=== PATIENT | male | born 1955 | race Caucasian/White ===

== ENCOUNTER 2017-09-23 18:44 | Emergency (ER) | payer OTHER ==
[~2017-09-23] VITALS: Ht 180.3 cm; Wt 82.5 kg
[2017-09-23 19:04] VITALS: BP 145/80; PULSE 96; RESP 22; TEMP 98.4; O2SAT 97
--- NOTE | 2017-09-23 23:40 | PD ---
HPI Chief Complaint: Psychiatric Symptoms Time Seen by Provider: 23:23 Travel History International Travel<30 days: No Contact w/Intl Traveler<30days: No Traveled to known affect area: No History of Present Illness HPI The patient is a 62-year-old male who presents to the emergency department for psychiatric evaluation. The patient states he has been homeless for approximately 1 month, recently traveled from [place], [place], to the local area looking for a new start. The patient is currently homeless and feeling depressed. Patient started having thoughts of suicide yesterday. The patient states this plan of action would be to step in front of the motor vehicle in an attempt to end his life. He denies any previous suicide attempts. He does have a history of bipolar affective disorder and depression, has not taken his Zoloft or Wellbutrin in 2 days. He denies any illicit drug use, does have a history of alcohol abuse, last alcohol intake was more than 2 days ago. He denies any hallucinations or delusions. He denies any physical complaints and is immediately requesting food. PFSH Past Medical History Bipolar Disorder: Yes Anxiety: Yes Depression: Yes Cardiovascular Problems: Yes (HTN) High Cholesterol: Yes Chest Pain: Yes Cerebrovascular Accident: Yes (10years ago) Diminished Hearing: No Hypertension: Yes Past Surgical History Narrative Surgical Bilateral arthroscopic knee surgery Social History Alcohol Use: Yes (12 pack of beer daily) Tobacco Use: Yes (1 PPD) Substance Use: Yes (Crack cocaine and marijuana approx 2 years ago) Allergies-Medications (Allergen,Severity, Reaction): Coded Allergies: No Known Drug Allergies (Verified Allergy, Unknown, 09/23/17) Reported Meds & Prescriptions Reported Meds & Active Scripts Active Reported Trazodone (Trazodone HCl) 150 Mg Tablet 150 Mg PO HS Metoprolol Succinate ER 24 HR (Metoprolol Succinate) 25 Mg Tab 25 Mg PO DAILY Atorvastatin (Atorvastatin Calcium) 20 Mg Tab 20 Mg PO HS Buspirone (Buspirone HCl) 10 Mg Tab 10 Mg PO BID Quetiapine (Quetiapine Fumarate) 300 Mg Tab 300 Mg PO HS Review of Systems Except as stated in HPI: all other systems reviewed are Neg HENT: No: Lightheadedness Cardiovascular: No: Chest Pain or Discomfort Respiratory: No: Shortness of Breath Gastrointestinal: No: Nausea, Vomiting, Abdominal Pain Neurologic: No: Weakness, Change in Mentation Psychiatric: Positive: Depression, Suicidal Ideations, Mood Disorder, No: Substance Abuse, Homicidal Ideation Physical Exam Narrative GENERAL: Awake, alert, nontoxic-appearing 62-year-old male who appears his stated age and is in no acute respiratory distress. SKIN: Focused skin assessment warm/dry. HEAD: Well-healed scar right mid forehead. EYES: Pupils equal and round. 3 mm bilateral and reactive. ENT: No nasal bleeding or discharge. Poor dentition. Breath smells of cigarettes. NECK: Trachea midline. No JVD. CARDIOVASCULAR: Regular rate and rhythm. No murmur appreciated. RESPIRATORY: No accessory muscle use. Clear to auscultation. Breath sounds equal bilaterally. GASTROINTESTINAL: Abdomen soft, non-tender, nondistended. Well-healed scar right upper quadrant of the abdomen. MUSCULOSKELETAL: No obvious deformities. No clubbing. No cyanosis. No edema. NEUROLOGICAL: Awake and alert. No obvious cranial nerve deficits. Motor grossly within normal limits. Normal speech. Nonfocal. Oriented 4. PSYCHIATRIC: Appropriate mood and affect; insight and judgment normal. Data Data Last Documented VS Vital Signs Date Time Temp Pulse Resp B/P (MAP) Pulse Ox O2 Delivery O2 Flow Rate FiO2 09/23/17 23:25 96 09/23/17 19:04 98.4 22 145/80 (101) 97 Orders Orders Complete Blood Count With Diff (09/23/17 23:35) Comprehensive Metabolic Panel (09/23/17 23:35) Thyroid Stimulating Hormone (09/23/17 23:35) Psych Screen (09/23/17 23:35) Drug Screen, Random Urine (09/23/17 23:35) Alcohol (Ethanol) (09/23/17 23:35) Labs Laboratory Tests Test 09/23/17 23:30 White Blood Count 12.1 TH/MM3 Red Blood Count 4.03 MIL/MM3 Hemoglobin 13.4 GM/DL Hematocrit 37.8 % Mean Corpuscular Volume 93.7 FL Mean Corpuscular Hemoglobin 33.2 PG Mean Corpuscular Hemoglobin Concent 35.4 % Red Cell Distribution Width 14.3 % Platelet Count 365 TH/MM3 Mean Platelet Volume 7.0 FL Neutrophils (%) (Auto) 60.8 % Lymphocytes (%) (Auto) 27.0 % Monocytes (%) (Auto) 8.9 % Eosinophils (%) (Auto) 2.7 % Basophils (%) (Auto) 0.6 % Neutrophils # (Auto) 7.4 TH/MM3 Lymphocytes # (Auto) 3.3 TH/MM3 Monocytes # (Auto) 1.1 TH/MM3 Eosinophils # (Auto) 0.3 TH/MM3 Basophils # (Auto) 0.1 TH/MM3 CBC Comment DIFF FINAL Differential Comment Blood Urea Nitrogen 18 MG/DL Creatinine 1.27 MG/DL Random Glucose 100 MG/DL Total Protein 7.6 GM/DL Albumin 3.9 GM/DL Calcium Level 9.1 MG/DL Alkaline Phosphatase 85 U/L Aspartate Amino Transf (AST/SGOT) 20 U/L Alanine Aminotransferase (ALT/SGPT) 21 U/L Total Bilirubin 0.6 MG/DL Sodium Level 141 MEQ/L Potassium Level 4.0 MEQ/L Chloride Level 105 MEQ/L Carbon Dioxide Level 27.0 MEQ/L Anion Gap 9 MEQ/L Estimat Glomerular Filtration Rate 57 ML/MIN Thyroid Stimulating Hormone 3rd Gen 3.360 uIU/ML Urine Opiates Screen NEG Urine Barbiturates Screen NEG Urine Amphetamines Screen NEG Urine Benzodiazepines Screen POS Urine Cocaine Screen NEG Urine Cannabinoids Screen NEG Ethyl Alcohol Level LESS THAN 3 MG/DL MDM Medical Decision Making Medical Screen Exam Complete: Yes Emergency Medical Condition: Yes Medical Record Reviewed: Yes Interpretation(s) Laboratory Tests Test 09/23/17 23:30 White Blood Count 12.1 TH/MM3 Red Blood Count 4.03 MIL/MM3 Hemoglobin 13.4 GM/DL Hematocrit 37.8 % Mean Corpuscular Volume 93.7 FL Mean Corpuscular Hemoglobin 33.2 PG Mean Corpuscular Hemoglobin Concent 35.4 % Red Cell Distribution Width 14.3 % Platelet Count 365 TH/MM3 Mean Platelet Volume 7.0 FL Neutrophils (%) (Auto) 60.8 % Lymphocytes (%) (Auto) 27.0 % Monocytes (%) (Auto) 8.9 % Eosinophils (%) (Auto) 2.7 % Basophils (%) (Auto) 0.6 % Neutrophils # (Auto) 7.4 TH/MM3 Lymphocytes # (Auto) 3.3 TH/MM3 Monocytes # (Auto) 1.1 TH/MM3 Eosinophils # (Auto) 0.3 TH/MM3 Basophils # (Auto) 0.1 TH/MM3 CBC Comment DIFF FINAL Differential Comment Blood Urea Nitrogen 18 MG/DL Creatinine 1.27 MG/DL Random Glucose 100 MG/DL Total Protein 7.6 GM/DL Albumin 3.9 GM/DL Calcium Level 9.1 MG/DL Alkaline Phosphatase 85 U/L Aspartate Amino Transf (AST/SGOT) 20 U/L Alanine Aminotransferase (ALT/SGPT) 21 U/L Total Bilirubin 0.6 MG/DL Sodium Level 141 MEQ/L Potassium Level 4.0 MEQ/L Chloride Level 105 MEQ/L Carbon Dioxide Level 27.0 MEQ/L Anion Gap 9 MEQ/L Estimat Glomerular Filtration Rate 57 ML/MIN Thyroid Stimulating Hormone 3rd Gen 3.360 uIU/ML Urine Opiates Screen NEG Urine Barbiturates Screen NEG Urine Amphetamines Screen NEG Urine Benzodiazepines Screen POS Urine Cocaine Screen NEG Urine Cannabinoids Screen NEG Ethyl Alcohol Level LESS THAN 3 MG/DL Differential Diagnosis Differential diagnosis includes depressive disorder NOS, bipolar affective disorder, substance-induced mood disorder, poor social situation, malingering. Narrative Course Labs were drawn and sent. Psychiatric evaluation was ordered. Labs were noted. The patient is medically cleared to be evaluated by psychiatry. Disposition as per psych. Diagnosis Primary Impression: Mood disorder Additional Impression: Suicidal ideation Condition: Stable Juan Luis Field MD Sep 23, 2017 23:40
[2017-09-23] MEDS ORDERED: ATOR20TA15 PO (23:41)
[2017-09-23] MEDS ORDERED: BUSP10TA PO (23:41)
[2017-09-23] MEDS ORDERED: QUET1TAB10 PO (23:41)
[2017-09-23] MEDS ORDERED: METO1TAB42 PO (23:46)
[2017-09-23] MEDS ORDERED: TRAZ1TAB14 PO (23:46)
[2017-09-24 00:05] LABS: AUTOMATED NEUTROPHIL # 7.4 TH/MM3 (1.8-7.7); BASOPHIL # 0.1 TH/MM3 (0-0.2); BASOPHIL % 0.6 % (0.0-2.0); EOSINOPHIL # 0.3 TH/MM3 (0-0.4); EOSINOPHIL % 2.7 % (0.0-4.0); HEMATOCRIT 37.8 % (39.0-51.0); HEMOGLOBIN 13.4 GM/DL (13.0-17.0); LYMPHOCYTE # 3.3 TH/MM3 (1.0-4.8); MEAN CELL VOLUME 93.7 FL (80.0-100.0); MEAN CORPUSCULAR HEMOGLOBIN 33.2 PG (27.0-34.0); MEAN CORPUSCULAR HGB CONC 35.4 % (32.0-36.0); MONO % 8.9 % (0.0-8.0); MONOCYTE # 1.1 TH/MM3 (0-0.9); NEUT % 60.8 % (16.0-70.0); PLATELET COUNT 365 TH/MM3 (150-450); RED BLOOD COUNT 4.03 MIL/MM3 (4.50-5.90); RED CELL DISTRIBUTION WIDTH 14.3 % (11.6-17.2); WHITE BLOOD COUNT 12.1 TH/MM3 (4.0-11.0)
[2017-09-24 00:08] LABS: ALBUMIN 3.9 GM/DL (3.4-5.0); AST (GOT) 20 U/L (15-37); BLOOD UREA NITROGEN 18 MG/DL (7-18); CALCIUM 9.1 MG/DL (8.5-10.1); CHLORIDE 105 MEQ/L (98-107); CREATININE 1.27 MG/DL (0.60-1.30); GLOMERULAR FILTRATION RATE 57 ML/MIN (>89); GLUCOSE,RANDOM 100 MG/DL (74-106); SODIUM (NA) 141 MEQ/L (136-145)
[2017-09-24 00:09] LABS: ALT (GPT) 21 U/L (12-78)
[2017-09-24 00:18] LABS: ALKALINE PHOSPHATASE 85 U/L (45-117); TOTAL BILIRUBIN ADULT 0.6 MG/DL (0.2-1.0); TOTAL PROTEIN 7.6 GM/DL (6.4-8.2)
[2017-09-24 08:00] VITALS: BP 132/75; PULSE 78; RESP 18; O2SAT 97
[2017-09-24 10:00] VITALS: BP 117/55; PULSE 90; RESP 16; TEMP 98.6; O2SAT 99
[2017-09-24 14:50] VITALS: BP 96/51; PULSE 78; RESP 16; TEMP 98.4; O2SAT 96
--- NOTE | 2017-09-24 15:39 | PD ---
History of Present Illness Chief Complaint: Psychiatric Symptoms Time Seen by Provider: 15:00 Travel History International Travel<30 Days: No Contact w/Intl Traveler<30days: No Known affected area: No Legal Status Legal Status: Voluntary History of Present Illness: History of Present Illness HPI The patient is a 62-year-old, , homeless male with reported history of bipolar disorder who presents to the emergency department on a voluntary status for psychiatric evaluation. Patient arrived to [place] from [facility] 2 days ago. He had been on his way from [place] to [place] where he normally resides before stopping at [place]. He states he wants to stay here in [place] for a new start. He states that approximately a month ago "when I got my check" I went to [place] to see a baseball game and I has been on a drunk for the past 30 days. It started to snow and get cold so I came back. I have been off my medicine for 2 days and I do not get my check until the third. I do not have a place to stay until then." Patient also tells me that he has been off his medication for 2 days but that he has a prescriptions. He was vague and failed to inform us that he was at a hospital in [place] and was discharged on the before he came here to [facility]. He also tells me he has insurance and has the funds to get the medication. The patient was monitored in secure environment and he presented no behavioral concerns, no suicidality. His main request was to obtain a nicotine patch as well as to obtain food. Labs are reviewed. Current toxicology is positive for benzos. The patient is alert, oriented, engaging, does not appear to be internally stimulated. No evidence of carmelita or hypomania. There is no suicidal or homicidal ideation, intent or plan. Upon discussion of discharge from the ED as he does not present criteria for admission to inpatient psychiatry he states " what am I going to do out there. I am probably just going to get in trouble so that I get thrown in retirement". Later on the patient does tell the test case developer that he has money and will most likely go and get a motel room. PFSH Past Medical History Bipolar Disorder: Yes Anxiety: Yes Depression: Yes Cardiovascular Problems: Yes (HTN) High Cholesterol: Yes Chest Pain: Yes Cerebrovascular Accident: Yes (10years ago) Diminished Hearing: No Hypertension: Yes Psychiatric History Psychiatric History Hx Psychiatric Treatment: Per pt, he has been treated with many different medications but they don't seem to work. He stated that he has been noncompliant with meds for the past couple of days. Most recently admitted to [facility] in [place]. No history of suicide attempts. History of Inpatient Treatment: Yes Guns or firearms in home: No Social History Divorce for the past 10 years. Has 2 children but has no contact with his family. Reports he has been on disability for the past 10 years. Hx Alcohol Use: Yes (12 pack of beer daily) Hx Tobacco Use: Yes (1 PPD) Hx Substance Use: Yes (Crack cocaine and marijuana approx 2 years ago) Substance Use Type: Alcohol, Nicotine/Cigarettes, Benzos (Valium,Xanax) Hx of Substance Use Treatment: Yes Family Psychiatric History Negative Allergies-Medications (Allergen,Severity, Reaction): Coded Allergies: No Known Drug Allergies (Verified Allergy, Unknown, 09/23/17) Reported Meds & Prescriptions Reported Meds & Active Scripts Active Reported Trazodone (Trazodone HCl) 150 Mg Tablet 150 Mg PO HS Metoprolol Succinate ER 24 HR (Metoprolol Succinate) 25 Mg Tab 25 Mg PO DAILY Atorvastatin (Atorvastatin Calcium) 20 Mg Tab 20 Mg PO HS Buspirone (Buspirone HCl) 10 Mg Tab 10 Mg PO BID Quetiapine (Quetiapine Fumarate) 300 Mg Tab 300 Mg PO HS Review of Systems Except as stated in HPI: all other systems reviewed are Neg Mental Status Examination Appearance: Appropriate Consciousness: Alert Orientation: x4 Motor Activity: Normal gait Speech: Unremarkable Language: Adequate Fund of Knowledge: Adequate Attention and Concentration: Adequate Memory: Unremarkable Mood: Appropriate Affect: Appropriate Thought Process & Associations: Intact, Logical, Goal directed Thought Content: Appropriate Hallucination Type: None Delusion Type: None Suicidal Ideation: No Suicidal Plan: No Suicidal Intention: No Homicidal Ideation: No Homicidal Plan: No Homicidal Intention: No Insight: Fair Judgment: Adequate [facility] Medical Decision Making Medical Record Reviewed: Yes Assessment/Plan The patient is a 62-year-old, , homeless male with reported history of bipolar disorder who presents to the emergency department on a voluntary status for psychiatric evaluation. Patient initially reported that he was feeling depressed as well as having suicidal ideation. Patient was monitor and secure environment and presented no behavioral concerns and no suicidality. His main concern was to obtain food and a nicotine patch. He was vague and evasive regarding his most recent psychiatric treatment or providers. He did admit that a month ago he decided to go to watch a baseball game in [place]. Then began traveling south towards [place]. At this stage she is considering staying in the [facility] and is worried because he does not get his check until Wednesday. The patient at this time does not present any criteria for inpatient psychiatric treatment. He was recently as of September 21 discharge from a hospital in [place]. He has prescriptions available as well as has funds available. The patient at this time will be discharged from the ED. The test case developer has given him the information regarding sore resources in the [facility] if he so chooses to stay in this area. Upon discussion of discharge he does threaten that he might do something to get himself in trouble and get himself arrested. Patient is cognitively intact and understands the consequences of his behavior and t that would be a legal matter and not a psychiatric matter. Orders Orders Complete Blood Count With Diff (09/23/17 23:35) Comprehensive Metabolic Panel (09/23/17 23:35) Thyroid Stimulating Hormone (09/23/17 23:35) Psych Screen (09/23/17 23:35) Drug Screen, Random Urine (09/23/17 23:35) Alcohol (Ethanol) (09/23/17 23:35) Diet Regular Basic (09/24/17 Breakfast) Diet Regular Basic (09/24/17 Lunch) Diet Regular Basic (09/24/17 Dinner) Results Vital Signs Date Time Temp Pulse Resp B/P (MAP) Pulse Ox O2 Delivery O2 Flow Rate FiO2 09/24/17 14:50 98.4 78 16 96/51 (66) 96 Room Air 09/24/17 10:00 98.6 90 16 117/55 (75) 99 Room Air 09/24/17 08:00 78 18 132/75 (94) 97 Room Air 09/23/17 23:25 96 09/23/17 19:04 98.4 96 22 145/80 (101) 97 Laboratory Tests Test 09/23/17 23:30 White Blood Count 12.1 Red Blood Count 4.03 Hemoglobin 13.4 Hematocrit 37.8 Mean Corpuscular Volume 93.7 Mean Corpuscular Hemoglobin 33.2 Mean Corpuscular Hemoglobin Concent 35.4 Red Cell Distribution Width 14.3 Platelet Count 365 Mean Platelet Volume 7.0 Neutrophils (%) (Auto) 60.8 Lymphocytes (%) (Auto) 27.0 Monocytes (%) (Auto) 8.9 Eosinophils (%) (Auto) 2.7 Basophils (%) (Auto) 0.6 Neutrophils # (Auto) 7.4 Lymphocytes # (Auto) 3.3 Monocytes # (Auto) 1.1 Eosinophils # (Auto) 0.3 Basophils # (Auto) 0.1 CBC Comment DIFF FINAL Differential Comment Blood Urea Nitrogen 18 Creatinine 1.27 Random Glucose 100 Total Protein 7.6 Albumin 3.9 Calcium Level 9.1 Alkaline Phosphatase 85 Aspartate Amino Transf (AST/SGOT) 20 Alanine Aminotransferase (ALT/SGPT) 21 Total Bilirubin 0.6 Sodium Level 141 Potassium Level 4.0 Chloride Level 105 Carbon Dioxide Level 27.0 Anion Gap 9 Estimat Glomerular Filtration Rate 57 Thyroid Stimulating Hormone 3rd Gen 3.360 Urine Opiates Screen NEG Urine Barbiturates Screen NEG Urine Amphetamines Screen NEG Urine Benzodiazepines Screen POS Urine Cocaine Screen NEG Urine Cannabinoids Screen NEG Ethyl Alcohol Level LESS THAN 3 Diagnosis Primary Impression: Suicidal ideation Additional Impression: Adjustment disorder Psychiatrically Cleared: Yes Med/ Other Pt Specific Info: No Change to Meds Disposition: 01 DISCHARGE HOME Condition: Stable Problem Qualifiers Additional Impression: Adjustment disorder Qualified Codes: F43.21 - Adjustment disorder with depressed mood Svitlana Reddy [facility] Sep 24, 2017 15:39
--- NOTE | 2017-09-24 15:43 | PD ---
Physical Exam Date Seen by Provider: Sep 24, 2017 Time Seen by Provider: 15:42 Narrative 62-year-old previously medically cleared for psychiatric evaluation voluntarily , was evaluated by psychiatric clinicians, and felt to be psychiatrically stable for discharge at this time. Patient remains medically stable at this time. Follow-up will be based on psychiatric note. Data Data Last Documented VS Vital Signs Date Time Temp Pulse Resp B/P (MAP) Pulse Ox O2 Delivery O2 Flow Rate FiO2 09/24/17 14:50 98.4 78 16 96/51 (66) 96 Room Air Orders Orders Complete Blood Count With Diff (09/23/17 23:35) Comprehensive Metabolic Panel (09/23/17 23:35) Thyroid Stimulating Hormone (09/23/17 23:35) Psych Screen (09/23/17 23:35) Drug Screen, Random Urine (09/23/17 23:35) Alcohol (Ethanol) (09/23/17 23:35) Diet Regular Basic (09/24/17 Breakfast) Diet Regular Basic (09/24/17 Lunch) Diet Regular Basic (09/24/17 Dinner) Labs Laboratory Tests Test 09/23/17 23:30 White Blood Count 12.1 TH/MM3 Red Blood Count 4.03 MIL/MM3 Hemoglobin 13.4 GM/DL Hematocrit 37.8 % Mean Corpuscular Volume 93.7 FL Mean Corpuscular Hemoglobin 33.2 PG Mean Corpuscular Hemoglobin Concent 35.4 % Red Cell Distribution Width 14.3 % Platelet Count 365 TH/MM3 Mean Platelet Volume 7.0 FL Neutrophils (%) (Auto) 60.8 % Lymphocytes (%) (Auto) 27.0 % Monocytes (%) (Auto) 8.9 % Eosinophils (%) (Auto) 2.7 % Basophils (%) (Auto) 0.6 % Neutrophils # (Auto) 7.4 TH/MM3 Lymphocytes # (Auto) 3.3 TH/MM3 Monocytes # (Auto) 1.1 TH/MM3 Eosinophils # (Auto) 0.3 TH/MM3 Basophils # (Auto) 0.1 TH/MM3 CBC Comment DIFF FINAL Differential Comment Blood Urea Nitrogen 18 MG/DL Creatinine 1.27 MG/DL Random Glucose 100 MG/DL Total Protein 7.6 GM/DL Albumin 3.9 GM/DL Calcium Level 9.1 MG/DL Alkaline Phosphatase 85 U/L Aspartate Amino Transf (AST/SGOT) 20 U/L Alanine Aminotransferase (ALT/SGPT) 21 U/L Total Bilirubin 0.6 MG/DL Sodium Level 141 MEQ/L Potassium Level 4.0 MEQ/L Chloride Level 105 MEQ/L Carbon Dioxide Level 27.0 MEQ/L Anion Gap 9 MEQ/L Estimat Glomerular Filtration Rate 57 ML/MIN Thyroid Stimulating Hormone 3rd Gen 3.360 uIU/ML Urine Opiates Screen NEG Urine Barbiturates Screen NEG Urine Amphetamines Screen NEG Urine Benzodiazepines Screen POS Urine Cocaine Screen NEG Urine Cannabinoids Screen NEG Ethyl Alcohol Level LESS THAN 3 MG/DL MDM Medical Record Reviewed: Yes Supervised Visit with ANGELINA: Yes Narrative Course 62-year-old previously medically cleared for psychiatric evaluation voluntarily , was evaluated by psychiatric clinicians, and felt to be psychiatrically stable for discharge at this time. Patient remains medically stable at this time. Follow-up will be based on psychiatric note. Diagnosis Primary Impression: Suicidal ideation Additional Impression: Adjustment disorder Qualified Codes: F43.21 - Adjustment disorder with depressed mood Patient Instructions: General Instructions Disposition: DISCHARGE HOME Condition: Stable Fernando Stanton Sep 24, 2017 15:43
== END 2017-09-24 16:06 | disposition home or self-care (01) ==
LOC: NEPC 18:44 → NEPJ 09-24 16:06
DX: R45.851 Suicidal ideations (principal); F43.21 Adjustment disorder with depressed mood; F19.10 Other psychoactive substance abuse, uncomplicated; F31.9 Bipolar disorder, unspecified; I10 Essential (primary) hypertension; E78.00 Pure hypercholesterolemia, unspecified; Z86.73 Personal history of transient ischemic attack (TIA), and cerebral infarction without residual deficits; Z59.0 Homelessness; Z79.899 Other long term (current) drug therapy
CPT/HCPCS: 80053; 80307; 84443; 85025; 99283

== ENCOUNTER 2017-09-27 14:47 | Emergency (ER) | payer OTHER ==
[~2017-09-27] VITALS: Ht 180.3 cm; Wt 81.8 kg
[~2017-09-27 14:47] MED LIST: ATOR20TA15 PO; BUSP10TA PO; METO1TAB42 PO; QUET1TAB10 PO; TRAZ1TAB14 PO
[2017-09-27 15:05] VITALS: BP 141/78; PULSE 104; RESP 20; TEMP 98.3; O2SAT 95
--- NOTE | 2017-09-27 16:10 | RADRPT ---
EXAM DATE/TIME: 09/27/2017 15:49 [facility] COMPARISON: CHEST SINGLE AP, September 25, 2017, 17:15. INDICATIONS : Chest pain and short of breath today, anxiety MEDICAL HISTORY : anxiety, depression, smoker SURGICAL HISTORY : None. ENCOUNTER: Initial ACUITY: 1 day PAIN SCORE: Non-responsive. LOCATION: Bilateral chest FINDINGS: PA and lateral views of the chest demonstrate the lungs to be symmetrically aerated without evidence of mass, infiltrate or effusion. The cardiomediastinal contours are unremarkable. Osseous structure s demonstrate degenerative changes in the thoracic spine.. CONCLUSION: 1. No acute cardiopulmonary findings. Jim Aguilar MD on September 27, 2017 at 16:08 Board Certified Radiologist. This report was verified electronically.
[2017-09-27 16:35] VITALS: BP 121/65; PULSE 78; RESP 19; O2SAT 100
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
[2017-09-27] MEDS ORDERED: SODIUM CHLORIDE 0.9% FLUSH 10 ML FLUSH IV FLUSH PRN (16:45)
[2017-09-27] MEDS ORDERED: ACETAMINOPHEN 500 MG CPLT PO ONE (17:00)
[2017-09-27] MEDS ORDERED: ASPIRIN 81 MG CHEW TAB PO ONE (17:00)
[2017-09-27 17:06] LABS: AUTOMATED NEUTROPHIL # 5.7 TH/MM3 (1.8-7.7); BASOPHIL # 0.1 TH/MM3 (0-0.2); BASOPHIL % 0.7 % (0.0-2.0); EOSINOPHIL # 0.1 TH/MM3 (0-0.4); EOSINOPHIL % 1.1 % (0.0-4.0); HEMATOCRIT 37.3 % (39.0-51.0); HEMOGLOBIN 12.8 GM/DL (13.0-17.0); LYMPH % 17.3 % (9.0-44.0); LYMPHOCYTE # 1.3 TH/MM3 (1.0-4.8); MEAN CELL VOLUME 93.6 FL (80.0-100.0); MEAN CORPUSCULAR HEMOGLOBIN 32.1 PG (27.0-34.0); MEAN CORPUSCULAR HGB CONC 34.3 % (32.0-36.0); MONO % 7.3 % (0.0-8.0); MONOCYTE # 0.6 TH/MM3 (0-0.9); NEUT % 73.6 % (16.0-70.0); PLATELET COUNT 386 TH/MM3 (150-450); RED BLOOD COUNT 3.98 MIL/MM3 (4.50-5.90); RED CELL DISTRIBUTION WIDTH 14.1 % (11.6-17.2); WHITE BLOOD COUNT 7.8 TH/MM3 (4.0-11.0)
--- NOTE | 2017-09-27 17:33 | EKG ---
Date Performed: 09/27/2017 Time Performed: 16:39:17 PTAGE: 62 years EKG: Baseline artifact present Sinus rhythm MARKED LEFT AXIS DEVIATION PATTERN CONSISTENT WITH PULMONARY DISEASE MODERATE INTRAVENTRICULAR CONDU CTION DELAY ABNORMAL ECG Compared to prior electrocardiogram, PROBABLE No significant change from kermit or electrocardiogram. . PREVIOUS TRACING : 09/25/2017 23.19 DOCTOR: Gonzalo Thomas Interpretating Date/Time 09/27/2017 17:31:39
[2017-09-27 18:00] LABS: BICARBONATE 25.8 MEQ/L (21.0-32.0); BLOOD UREA NITROGEN 16 MG/DL (7-18); CALCIUM 8.6 MG/DL (8.5-10.1); CHLORIDE 109 MEQ/L (98-107); CREATININE 1.32 MG/DL (0.60-1.30); GLOMERULAR FILTRATION RATE 55 ML/MIN (>89); GLUCOSE,RANDOM 173 MG/DL (74-106); SODIUM (NA) 141 MEQ/L (136-145); TROPONIN I LESS THAN 0.02 NG/ML (0.02-0.05)
[2017-09-28] MEDS ORDERED: ABIL30TA5 PO (16:08)
[2017-09-28] MEDS ORDERED: BUPR150CR PO (16:08)
== END 2017-09-27 18:19 | disposition home or self-care (01) ==
LOC: NEPC 14:47
DX: R07.89 Other chest pain (principal); F17.200 Nicotine dependence, unspecified, uncomplicated; I10 Essential (primary) hypertension; Z79.899 Other long term (current) drug therapy
CPT/HCPCS: 71046; 80048; 82550; 82552; 83735; 84484; 85025; 85610; 85730; 93005; 99285

== ENCOUNTER 2017-09-27 18:45 | Emergency (ER) | payer OTHER ==
[~2017-09-27] VITALS: Ht 180.3 cm; Wt 81.8 kg
[2017-09-27 19:05] VITALS: BP 146/72; PULSE 86; RESP 18; TEMP 98; O2SAT 97
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
[2017-09-28] MEDS ORDERED: BUPR150CR PO (16:08)
[2017-09-28] MEDS ORDERED: ABIL30TA5 PO (16:08)
== END 2017-09-27 21:53 | disposition home or self-care (01) ==
LOC: NEPJ 18:45
DX: Z76.5 Malingerer [conscious simulation] (principal); F17.200 Nicotine dependence, unspecified, uncomplicated
CPT/HCPCS: 99283

== ENCOUNTER 2017-09-27 22:04 | Emergency (ER) | payer OTHER ==
[~2017-09-27] VITALS: Ht 180.3 cm; Wt 81.8 kg
[2017-09-27 22:11] VITALS: BP 164/89; PULSE 80; RESP 18; O2SAT 98
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
[2017-09-28] MEDS ORDERED: BUPR150CR PO (16:08)
[2017-09-28] MEDS ORDERED: ABIL30TA5 PO (16:08)
== END 2017-09-28 00:42 | disposition home or self-care (01) ==
LOC: NEPD 22:04
DX: R07.89 Other chest pain (principal); Z76.5 Malingerer [conscious simulation]
CPT/HCPCS: 99281